=== PATIENT | female | born 1995 | race Caucasian/White ===

== ENCOUNTER 2021-08-21 21:41 | Emergency (ER) | payer BC ==
[2021-08-21] MEDS ORDERED: Sulfamethoxazole/Trimethoprim 800-160 MG Tab PO ONE (21:42)
--- NOTE | 2021-08-21 21:55 | EDM.PDOCBH ---
ED HPI GENERAL MEDICAL PROBLEM - General Stated Complaint: Suicidal Ideation Time Seen by Provider: 08/21/21 21:45 Source of Information: Reports: Patient, Family History Limitations: Reports: No Limitations - History of Present Illness INITIAL COMMENTS - FREE TEXT/NARRATIVE: Patient presented to the ED because of suicidal ideation which started 1 week ago. She said her anxiety and depression is getting worse. her major stressors are her not so good relationship with family members, her kids, paying bills etc. When asked about her plan she told Rajan CAPUTO that she can hung herself, use stab hersel with a knife or shoot herself with a gun. She denies having previous attempted suicide or psych hospitalization. - Related Data Allergies Allergy/AdvReac Type Severity Reaction Status Date / Time No Known Allergies Allergy Verified 08/22/21 02:24 Home Meds: Home Meds . Control 1 dose PO ASDIRECTED 08/22/21 [History] .Clindamycin Topical 1 applic TOP BID PRN 08/22/21 [History] .Retina Cream 1 applic TOP ASDIRECTED PRN 08/22/21 [History] Amphetamine/Dextroamphetamine [Adderall XR] 30 mg PO DAILY 08/22/21 [History] Fluticasone Propionate [Flonase] 1 spray NASBOTH DAILY PRN 08/22/21 [History] Glycopyrrolate [Robinul] 2 mg PO BID 08/22/21 [History] Loratadine [Claritin] 10 mg PO DAILY 08/22/21 [History] Sertraline [Zoloft] 100 mg PO DAILY 08/22/21 [History] Spironolactone 50 mg PO BEDTIME 08/22/21 [History] Spironolactone [Aldactone] 100 mg PO DAILY 08/22/21 [History] buPROPion HCL [Wellbutrin Xl] 150 mg PO DAILY 08/22/21 [History] ED ROS GENERAL - Review of Systems Review Of Systems: See Below Constitutional: Reports: No Symptoms HEENT: Reports: No Symptoms Respiratory: Reports: No Symptoms Cardiovascular: Reports: No Symptoms Endocrine: Reports: No Symptoms GI/Abdominal: Reports: No Symptoms : Reports: No Symptoms Musculoskeletal: Reports: No Symptoms Skin: Reports: No Symptoms Neurological: Reports: No Symptoms Psychiatric: Reports: Anxiety, Depression, Suicidal Ideation Hematologic/Lymphatic: Reports: No Symptoms ED EXAM, BEHAVIORAL HEALTH - Physical Exam Exam: See Below Exam Limited By: No Limitations General Appearance: Alert, No Apparent Distress Ears: Normal External Exam, Normal Canal Nose: Normal Inspection, Normal Mucosa Throat/Mouth: Normal Inspection, Normal Lips, Normal Teeth Head: Atraumatic, Normocephalic Neck: Normal Inspection, Supple, Non-Tender, Full Range of Motion Respiratory/Chest: No Respiratory Distress, Lungs Clear, Normal Breath Sounds, No Accessory Muscle Use, Chest Non-Tender Cardiovascular: Normal Peripheral Pulses, Regular Rate, Rhythm, No Edema, No Gallop, No JVD, No Murmur, No Rub GI/Abdominal: Normal Bowel Sounds, Soft, Non-Tender, No Organomegaly, No Distention Back Exam: Normal Inspection, Full Range of Motion Extremities: Normal Inspection, Normal Range of Motion, Non-Tender, No Pedal Edema, Normal Capillary Refill Neurological: Alert, Normal Mood/Affect, CN II-XII Intact, Normal Cognition, Normal Gait, Normal Reflexes, No Motor/Sensory Deficits COURSE, BEHAVIORAL HEALTH COMP - Course Vital Signs: Last Vital Signs Temp 36.2 C 08/22/21 02:50 Pulse 89 08/22/21 02:50 Resp 18 08/22/21 02:50 BP 149/103 H 08/22/21 02:50 Pulse Ox 99 08/22/21 02:50 Lab result was reviewed with patient and her family Covid test-negative Orders, Labs, Meds: Active Orders 24 hr Category Date Time Status CULTURE URINE [RM] Stat Lab 08/21/21 22:40 Received THYROXINE (T4) FREE, DIRECT Stat Lab 08/21/21 22:25 Received Acetaminophen [Tylenol Extra Strength] Med 08/22/21 08:55 Active 1,000 mg PO Q6H PRN Medication Orders Acetaminophen (Acetaminophen 500 Mg Tab) 1,000 mg PO Q6H PRN PRN Reason: Headache Last Admin: 08/22/21 09:05 Dose: 1,000 mg Documented by: LAUREEN Laboratory Tests 08/21/21 08/21/21 08/21/21 Range/Units 22:25 22:25 22:25 WBC 7.5 (3.0-10.3) x10-3/uL RBC 4.50 (3.60-5.20) x10(6)uL Hgb 12.9 (11.4-15.5) g/dL Hct 38.3 (34.2-48.2) % MCV 85.1 (76.7-100.5) fL MCH 28.7 (23.9-33.9) pg MCHC 33.7 (31.9-34.8) g/dL RDW 12.8 (12.3-16.5) % Plt Count 290 (151-488) x10(3)uL MPV 7.0 L (7.1-12.4) fL Neut % (Auto) 67.3 (30.8-76.2) % Lymph % (Auto) 26.1 (18.4-52.1) % Ashe % (Auto) 5.5 (4.4-15.7) % Eos % (Auto) 0.6 (0.6-8.1) % Baso % (Auto) 0.5 (0.2-1.5) % Neut # (Auto) 5.0 (1.5-6.3) x10-3/uL Lymph # (Auto) 2.0 (1.0-4.4) x10-3/uL Ashe # (Auto) 0.4 (0.3-1.0) x10-3/uL Eos # (Auto) 0.0 (0.0-0.8) x10-3/uL Baso # (Auto) 0.0 (0.0-0.1) x10-3/uL Sodium 140 (135-145) mmol/L Potassium 3.4 L (3.5-5.3) mmol/L Chloride 105 (100-110) mmol/L Carbon Dioxide 27 (21-32) mmol/L BUN 14 (7-18) mg/dL Creatinine 1.0 (0.55-1.02) mg/dL Est Cr Clr Drug Dosing TNP Estimated GFR (MDRD) > 60 (>60) BUN/Creatinine Ratio 14.0 (9-20) Glucose 111 (80-116) mg/dL Calcium 8.3 L (8.6-10.2) mg/dL Total Bilirubin 0.4 (0.1-1.3) mg/dL AST 14 (5-25) IU/L ALT 16 (12-36) U/L Alkaline Phosphatase 47 L (56-112) IU/L Total Protein 7.2 (6.0-8.0) g/dL Albumin 3.7 (3.5-5.2) g/dL Globulin 3.5 g/dL Albumin/Globulin Ratio 1.1 TSH, Ultra Sensitive 4.01 H (0.36-3.74) IU/mL Urine Color (YELLOW) Urine Appearance (CLEAR) Urine pH (5.0-6.5) Ur Specific Alpine (1.010-1.025) Urine Protein (NEGATIVE) mg/dL Urine Glucose (UA) (NORMAL) mg/dL Urine Ketones (NEGATIVE) mg/dL Urine Occult Blood (NEGATIVE) Urine Nitrite (NEGATIVE) Urine Bilirubin (NEGATIVE) Urine Urobilinogen (NEGATIVE) mg/dL Ur Leukocyte Esterase (NEGATIVE) Urine RBC (0-5) Urine WBC (0-5) Ur Squamous Epith Cells (NS,R,O) Urine Bacteria (NS) Urine Mucus (NS) Urine HCG, Qual (NEGATIVE) Salicylates (<2.8) mg/dL Urine Opiates Screen (NEGATIVE) Ur Buprenorphine Scrn (NEGATIVE) Ur Oxycodone Screen (NEGATIVE) Urine Methadone Screen (NEGATIVE) Ur Propoxyphene Screen (NEGATIVE) Acetaminophen (<2) ug/mL Ur Barbiturates Screen (NEGATIVE) Ur Tricyclics Screen (NEGATIVE) Ur Phencyclidine Scrn (NEGATIVE) Ur Amphetamine Screen (NEGATIVE) U Methamphetamines Scrn (NEGATIVE) U Benzodiazepines Scrn (NEGATIVE) U Cocaine Metab Screen (NEGATIVE) U Marijuana (THC) Screen (NEGATIVE) Ethyl Alcohol (<0.03) % SARS-CoV-2 RNA (SILVI[place]O) (NEGATIVE) 08/21/21 08/21/21 08/21/21 Range/Units 22:25 22:25 22:40 WBC (3.0-10.3) x10-3/uL RBC (3.60-5.20) x10(6)uL Hgb (11.4-15.5) g/dL Hct (34.2-48.2) % MCV (76.7-100.5) fL MCH (23.9-33.9) pg MCHC (31.9-34.8) g/dL RDW (12.3-16.5) % Plt Count (151-488) x10(3)uL MPV (7.1-12.4) fL Neut % (Auto) (30.8-76.2) % Lymph % (Auto) (18.4-52.1) % Ashe % (Auto) (4.4-15.7) % Eos % (Auto) (0.6-8.1) % Baso % (Auto) (0.2-1.5) % Neut # (Auto) (1.5-6.3) x10-3/uL Lymph # (Auto) (1.0-4.4) x10-3/uL Ashe # (Auto) (0.3-1.0) x10-3/uL Eos # (Auto) (0.0-0.8) x10-3/uL Baso # (Auto) (0.0-0.1) x10-3/uL Sodium (135-145) mmol/L Potassium (3.5-5.3) mmol/L Chloride (100-110) mmol/L Carbon Dioxide (21-32) mmol/L BUN (7-18) mg/dL Creatinine (0.55-1.02) mg/dL Est Cr Clr Drug Dosing Estimated GFR (MDRD) (>60) BUN/Creatinine Ratio (9-20) Glucose (80-116) mg/dL Calcium (8.6-10.2) mg/dL Total Bilirubin (0.1-1.3) mg/dL AST (5-25) IU/L ALT (12-36) U/L Alkaline Phosphatase (56-112) IU/L Total Protein (6.0-8.0) g/dL Albumin (3.5-5.2) g/dL Globulin g/dL Albumin/Globulin Ratio TSH, Ultra Sensitive (0.36-3.74) IU/mL Urine Color Yellow (YELLOW) Urine Appearance Cloudy (CLEAR) Urine pH 6.0 (5.0-6.5) Ur Specific Alpine 1.020 (1.010-1.025) Urine Protein Trace (NEGATIVE) mg/dL Urine Glucose (UA) Normal (NORMAL) mg/dL Urine Ketones 15 H (NEGATIVE) mg/dL Urine Occult Blood Large H (NEGATIVE) Urine Nitrite Negative (NEGATIVE) Urine Bilirubin Negative (NEGATIVE) Urine Urobilinogen Normal (NEGATIVE) mg/dL Ur Leukocyte Esterase Large H (NEGATIVE) Urine RBC 5-10 H (0-5) Urine WBC 20-30 H (0-5) Ur Squamous Epith Cells Many H (NS,R,O) Urine Bacteria Moderate H (NS) Urine Mucus Moderate H (NS) Urine HCG, Qual (NEGATIVE) Salicylates < 2.8 L (<2.8) mg/dL Urine Opiates Screen (NEGATIVE) Ur Buprenorphine Scrn (NEGATIVE) Ur Oxycodone Screen (NEGATIVE) Urine Methadone Screen (NEGATIVE) Ur Propoxyphene Screen (NEGATIVE) Acetaminophen < 2 L (<2) ug/mL Ur Barbiturates Screen (NEGATIVE) Ur Tricyclics Screen (NEGATIVE) Ur Phencyclidine Scrn (NEGATIVE) Ur Amphetamine Screen (NEGATIVE) U Methamphetamines Scrn (NEGATIVE) U Benzodiazepines Scrn (NEGATIVE) U Cocaine Metab Screen (NEGATIVE) U Marijuana (THC) Screen (NEGATIVE) Ethyl Alcohol < 0.03 (<0.03) % SARS-CoV-2 RNA (SILVIANO) (NEGATIVE) 08/21/21 08/21/21 08/21/21 Range/Units 22:40 22:40 23:40 WBC (3.0-10.3) x10-3/uL RBC (3.60-5.20) x10(6)uL Hgb (11.4-15.5) g/dL Hct (34.2-48.2) % MCV (76.7-100.5) fL MCH (23.9-33.9) pg MCHC (31.9-34.8) g/dL RDW (12.3-16.5) % Plt Count (151-488) x10(3)uL MPV (7.1-12.4) fL Neut % (Auto) (30.8-76.2) % Lymph % (Auto) (18.4-52.1) % Ashe % (Auto) (4.4-15.7) % Eos % (Auto) (0.6-8.1) % Baso % (Auto) (0.2-1.5) % Neut # (Auto) (1.5-6.3) x10-3/uL Lymph # (Auto) (1.0-4.4) x10-3/uL Ashe # (Auto) (0.3-1.0) x10-3/uL Eos # (Auto) (0.0-0.8) x10-3/uL Baso # (Auto) (0.0-0.1) x10-3/uL Sodium (135-145) mmol/L Potassium (3.5-5.3) mmol/L Chloride (100-110) mmol/L Carbon Dioxide (21-32) mmol/L BUN (7-18) mg/dL Creatinine (0.55-1.02) mg/dL Est Cr Clr Drug Dosing Estimated GFR (MDRD) (>60) BUN/Creatinine Ratio (9-20) Glucose (80-116) mg/dL Calcium (8.6-10.2) mg/dL Total Bilirubin (0.1-1.3) mg/dL AST (5-25) IU/L ALT (12-36) U/L Alkaline Phosphatase (56-112) IU/L Total Protein (6.0-8.0) g/dL Albumin (3.5-5.2) g/dL Globulin g/dL Albumin/Globulin Ratio TSH, Ultra Sensitive (0.36-3.74) IU/mL Urine Color (YELLOW) Urine Appearance (CLEAR) Urine pH (5.0-6.5) Ur Specific Alpine (1.010-1.025) Urine Protein (NEGATIVE) mg/dL Urine Glucose (UA) (NORMAL) mg/dL Urine Ketones (NEGATIVE) mg/dL Urine Occult Blood (NEGATIVE) Urine Nitrite (NEGATIVE) Urine Bilirubin (NEGATIVE) Urine Urobilinogen (NEGATIVE) mg/dL Ur Leukocyte Esterase (NEGATIVE) Urine RBC (0-5) Urine WBC (0-5) Ur Squamous Epith Cells (NS,R,O) Urine Bacteria (NS) Urine Mucus (NS) Urine HCG, Qual Negative (NEGATIVE) Salicylates (<2.8) mg/dL Urine Opiates Screen Negative (NEGATIVE) Ur Buprenorphine Scrn Negative (NEGATIVE) Ur Oxycodone Screen Negative (NEGATIVE) Urine Methadone Screen Negative (NEGATIVE) Ur Propoxyphene Screen Negative (NEGATIVE) Acetaminophen (<2) ug/mL Ur Barbiturates Screen Negative (NEGATIVE) Ur Tricyclics Screen Negative (NEGATIVE) Ur Phencyclidine Scrn Negative (NEGATIVE) Ur Amphetamine Screen Positive H (NEGATIVE) U Methamphetamines Scrn Negative (NEGATIVE) U Benzodiazepines Scrn Negative (NEGATIVE) U Cocaine Metab Screen Negative (NEGATIVE) U Marijuana (THC) Screen Negative (NEGATIVE) Ethyl Alcohol (<0.03) % SARS-CoV-2 RNA (SILVIANO) Negative (NEGATIVE) Medications Generic Name Dose Route Start Last Admin Trade Name Damari PRN Reason Stop Dose Admin Acetaminophen 1,000 mg 08/22/21 08:55 08/22/21 09:05 Acetaminophen 500 Mg Tab PO 1,000 mg Q6H PRN Administration Headache Departure - Departure Time of Disposition: 17:00 Disposition: Home, Self-Care 01 Condition: Good Clinical Impression: Depression, Anxiety, Suicidal ideation, UTI (urinary tract infection) - Discharge Information Referrals: Manda Reeves PA-C [Primary Care Provider] - Additional Instructions: Please read discharge instructions on depression,anxiety, suicidal ideation, ad UTI Drink at least 2 liters of water daily while being treated for your UTI Bactrim DS twice daily for 5 days(for UTI) Please return to the ED right away if you feel overwhelmed and if you feel like you want to hurt yourself or other people Expect phone calls tomorrow and for the days to come just to check on how you are doing - My Orders Last 24 Hours: My Active Orders 08/21/21 22:25 THYROXINE (T4) FREE, DIRECT Stat 08/21/21 22:40 CULTURE URINE [RM] Stat 08/22/21 08:55 Acetaminophen [Tylenol Extra Strength] 1,000 mg PO Q6H PRN - Assessment/Plan Last 24 Hours: My Active Orders 08/21/21 22:25 THYROXINE (T4) FREE, DIRECT Stat 08/21/21 22:40 CULTURE URINE [RM] Stat 08/22/21 08:55 Acetaminophen [Tylenol Extra Strength] 1,000 mg PO Q6H PRN
[2021-08-21 22:50] LABS: ACETAMINOPHEN < 2 ug/mL (<2)
[2021-08-22] MEDS ORDERED: Acetaminophen 500 MG Tab PO PRN (08:55)
== END 2021-08-22 17:24 | disposition home or self-care (01) ==
LOC: FB.ED 21:41
DX: F32.9 Major depressive disorder, single episode, unspecified (principal); F41.9 Anxiety disorder, unspecified; R45.851 Suicidal ideations; N39.0 Urinary tract infection, site not specified; Z20.822 Contact with and (suspected) exposure to COVID-19; Z79.899 Other long term (current) drug therapy
CPT/HCPCS: 36415; 80053; 80143; 80179; 80307; 81001; 81025; 84439; 84443; 85025; 87086; 87088; 87635; 99285; A9270; U0002